=== PATIENT | female | born 1985 | race Two or more races ===

== ENCOUNTER 2025-01-31 09:25 | Outpatient (AMB) | payer MEDICAID, SELFPAY ==
[2025-01-31 09:35] VITALS: BP 129/88; PULSE 91; RESP 18; TEMP 36.6; O2SAT 96; BMI 41.3
--- NOTE | 2025-01-31 09:35 | AMB.GYNCLNOT ---
Vital Signs 01/31/25 09:35 Height 1.63 m Height Method Stated Weight 109.372 kg Weight Measurement Method Standing Scale BMI 41.3 BP 129/88 H Blood Pressure Source Automatic Cuff Blood Pressure Location Left Upper Arm Position Sitting Respiration 18 Pulse 91 Pulse Source Monitor Temp 97.8 F Temp Source Oral Pulse Oximetry (%) 96 Oxygen Delivery Method Room Air Allergies/Home Meds Allergies & Medications Allergies No Known Allergies Allergy (Verified 01/31/25 09:37) Medication Reconciliation No Known Home Medications 01/31/25 [History Confirmed 01/31/25] Intake Visit Data Collection New Patient or Established: New Patient (never been to [facility]) Reason for Visit:: POSSIBLE OVARIAN CYST\HEAVY MENSES Seen by Clinical Staff ONLY (RN/MA): No Pediatric Audiologist Required: Yes Pediatric Audiologist's name/title: DANIEL LUNDBERG Do You Feel Safe at Home: Yes Authorities Contacted: N/A PCP or OBGYN visit in last 3 months: Yes Hx Now: No Are you currently on any form of Control: No Last menstrual period: 01/28/25 Pain Present Currently: No Pain Scale Used: [place]-Goodwin/Numerical Pain scale:: 0 Smoking Status Smoking Status: Never smoker Immunizations Flu Vaccine in the Last 12 Months: Yes Flu Vaccine Exclusion Criteria: Already Received [employer] Supervisor history [employer]ary [employer] Supervisor History Menstrual regularity: regular Flow: heavy Monthly: Yes How many days does period last: 5 Age at menarche: 13 Currently sexually active: Yes Questionnaires Covid-19 Vaccine Questionnaire Has patient been vacinated for Covid-19 Have you been vacinated for Covid-19: Yes PHQ-9 PHQ-2 Over the last 2 weeks, how often have you been bothered by any of the following problems? 1. Little interest or pleasure in doing things: not at all 2. Feeling down, depressed, or hopeless: not at all Total score: 0 PHQ-9 3. Trouble falling or staying asleep, or sleeping too much: Not at all 4. Feeling tired or having little energy: Not at all 5. Poor appetite or overeating: Not at all 6. Feeling bad about yourself - or that you are a failure or have let yourself or your family down: Not at all 7. Trouble concentrating on things, such as reading the newspaper or watching television: Not at all 8. Moving or speaking so slowly that other people could have noticed? - Or the opposite - being so fidgety or restless that you have been moving around a lot more than usual: not at all 9. Thoughts that you would be better off or of hurting yourself in some way: Not at all Total score: 0 Source: Developed by Drs. Adam Gtz, Xenia Jones, Luis Armando White and colleagues, with an educational burke from [employer]. Depression screen completed yes Social History Living Situation History Marital Status: Lives With: Family Housing: House Tobacco History Smoking Status: Never smoker Second Hand Smoke Exposure: No Alcohol History Alcohol Intake: Never Domestic Abuse History Do You Feel Safe at Home: Yes History of Present Illness HPI Narrative Ovarian cysts and heavy menses on referral, left-sided abdominal pain described as colic-like lasting about 3 minutes occurring intermittently for 2 years Sherri Mobley is a 39-year-old presenting on referral for ovarian cysts and heavy menses. She reports experiencing intermittent left-sided abdominal pain described as colicky in nature that occurs suddenly without warning, lasting approximately 3 minutes before resolving spontaneously. This pain has been ongoing for 2 years and is located primarily on the left side of her abdomen, with the right side being less affected. She denies current use of any control, hormones, or contraceptive shots. She has a history of leiomyoma noted in previous records from October 2024, though no recent pelvic ultrasounds are available for review. She denies any other ongoing medical issues. Medical History: - Leiomyoma (fibroids) noted in previous documentation from 2024 Obstetric History: - GPAL: A0 L1 - One prior delivery, no additional details provided Exam General General Appearance: alert, in no apparent distress and healthy appearing Head Head exam: atraumatic Neck Neck exam: Present normal inspection and trachea midline Chest Chest inspection: Present normal inspection and symmetric chest wall rise External exam: Present normal external exam; Absent tenderness Neuro Neurological exam: Present oriented X3 Psych Psychiatric exam: Present normal affect and normal mood Office Procedures [facility] Clinic LOC & Office Proc's Nursing/Assessment Patient Status: Established Patient OB Clinic Nursing Assessment: Medication Reconciliation, Update PMH in EMR and Vital Signs OB Clinic Coordination of Care: Complex Care and Chronic Disease 1-5, Consent,records obtained, informed consent, Education Simp Pt/Fam, Lab and Imaging orders, Results/Orders obtained and Staff clarify orders Established Patient Charge Established Patient Point Assignment: 105 Established Patient Point Charge: EP Level 3 (80-115) Assessment & Plan Diagnosis / Problem List (1) Intramural leiomyoma of uterus: Status: Acute Plan Left-sided abdominal pain Assessment: Patient reports intermittent left-sided abdominal pain described as colicky, lasting approximately 3 minutes, occurring suddenly without warning for the past 2 years. Pain is more prominent on the left side with minimal symptoms on the right side. Given the history of ovarian cysts mentioned in referral and the location and character of pain, differential diagnosis includes ovarian pathology such as ovarian cysts or other gynecologic causes. Previous ultrasound imaging was performed but results are not available for review. Plan: - Order pelvic ultrasound to evaluate for ovarian cysts or uterine pathology - Check insurance authorization if needed for ultrasound - Follow-up appointment after ultrasound completion to review results and determine further management based on findings
== END 2025-01-31 10:11 | disposition home or self-care (01) ==
LOC: HODSOBC 09:25
PROVIDERS: Supervising Provider Obstetrics & Gynecology; Visit Provider Obstetrics & Gynecology
DX: D25.1 Intramural leiomyoma of uterus (principal)
CPT/HCPCS: 99213; G0463